=== PATIENT | female | born 1990 | race Two or more races ===

== ENCOUNTER 2016-06-19 06:30 | Inpatient (IN) | payer OTHER ==
[2016-06-19] MEDS ORDERED: CARBOPROST TROMETHAMINE 250 MCG/ML 1 ML AMP IM PRN (06:48)
[2016-06-19] MEDS ORDERED: TERBUTALINE 1 MG/ML VIAL SQ PRN (06:48)
[2016-06-19] MEDS ORDERED: LIDOCAINE 1% (PF) 10 MG/ML (30 ML SDV) SQ PRN (06:48)
[2016-06-19] MEDS ORDERED: METHYLERGONOVINE 0.2 MG/ML 1 ML AMP IM PRN (06:48)
[2016-06-19] MEDS ORDERED: OXYTOCIN 10 UNIT/ML 1 ML VIAL IM PRN (06:48)
[2016-06-19] MEDS ORDERED: OXYTOCIN 30 UNITS/500 ML NS 30 UNIT in SALINE 1 500ML.BAG IV SCH ×2 (07:00→12:00)
[2016-06-19 07:01] LABS: Basophils % (A) 1 %; CH 24.4; Eosinophils # (A) 0.1 k/uL (0-0.7); Eosinophils % (A) 1 %; HCT 32.6 % (34.0-46.0); HDW 3.16; HGB 10.1 gm/dL (11.4-16.0); Hypochromasia Slight; Luc # (Auto) 0.18; Luc % (Auto) 2; Lymphocytes # (A) 2.2 k/uL (1.0-4.8); Lymphocytes % (A) 28 %; MCH 23.9 pg (25.0-35.0); MCHC 31.1 g/dL (31.0-37.0); MCV 76.7 fL (80.0-100.0); Mean Platelet Volume 8.3; Microcytosis Slight; Monocytes # (A) 0.6 k/uL (0-1.0); Monocytes % (A) 7 %; Neutrophils # (A) 4.9 k/uL (1.3-7.7); Neutrophils % (A) 62 %; RBC 4.25 m/uL (3.80-5.40); RDW 15.5 % (11.5-15.5); WBC 7.9 k/uL (3.8-10.6)
[2016-06-19] MEDS: LACTATED RINGERS 1,000 ML IV SCH (07:21)
[2016-06-19 07:51] VITALS: BMI 31.2
[2016-06-19] MEDS ORDERED: BUTORPHANOL 1 MG/ML 1 ML VIAL IV PRN (08:50)
--- NOTE | 2016-06-19 08:50 | P.HPOB ---
History of Present Illness H&P Date: 06/19/16 Chief Complaint: 39-0/7 weeks, elective induction The patient is a 25-year-old 3 para 1011 admitted at 39-0/7 weeks as established by seven-week ultrasound. She is admitted for elective induction of labor the all signs reassuring. Her has been uncomplicated and group B strep status is negative. 3 para 1011 with 1 term vaginal delivery and 1 elective interruption of . Current statistics are listed in history of present illness. EDC of 06/26/2016 was established by seven-week ultrasound. Laboratory workup done traits of blood type of A+ with a negative antibody screen. Rubella status is immune. The remainder of laboratory workup was negative aside from a positive Chlamydia culture which was treated and cured early Glucola was normal while second trimester Glucola was elevated and followed by a normal three-hour glucose tolerance test. Group B strep status is negative. Gynecologic history is unremarkable but does have a history of STD as noted above. That concern was treated and cured during the . Review of Systems Review of systems is confined to history of present illness. Past Medical History Past Medical History: No Reported History History of Any Multi-Drug Resistant Organisms: None Reported Past Surgical History: No Surgical Hx Reported Past Anesthesia/Blood Transfusion Reactions: No Reported Reaction Past Psychological History: Depression Smoking Status: Never smoker Past Alcohol Use History: None Reported Past Drug Use History: None Reported - Past Family History Mother Family Medical History: No Reported History Medications and Allergies Home Medications Medication Instructions Recorded Confirmed Type Sertraline [Zoloft] 100 mg PO HS 06/07/15 06/19/16 History Pnv with Ca,No.72/Iron/FA 1 tab PO ONCE 06/19/16 06/19/16 History [ Plus Tablet] Allergies Allergy/AdvReac Type Severity Reaction Status Date / Time No Known Allergies Allergy Verified 06/07/15 13:54 Exam - Vital Signs Vital signs: Vital Signs Temp Pulse Resp BP Pulse Ox 06/19/16 06:50 96.9 F L 113 H 16 107/69 97 Intake and Output 06/18/16 06/19/16 06/19/16 22:59 06:59 14:59 Other: Weight 82.554 kg In general, this is a well-developed, well-nourished female in no acute distress. Her heart has a regular rhythm and rate without murmur. Her lungs are clear to auscultation bilaterally in all alvarado. Her abdomen is gravid, nondistended, has normal active bowel sounds, is soft, nontender, and without any palpable masses aside from the uterine fundus. Her extremities are without any cyanosis, clubbing, or edema and are nontender to palpation bilaterally. Digital cervical examination on straights her cervix to approximate 3 cm dilated , 50% effaced, with the vertex in presentation at -2-3 station. Artificial rupture of membranes is carried out demonstrate clear fluid. Results Result Diagrams: 06/19/16 06:50 Abnormal Lab Results - Last 24 Hours (Table) 06/19/16 Range/Units 06:50 Hgb 10.1 L (11.4-16.0) gm/dL Hct 32.6 L (34.0-46.0) % MCV 76.7 L (80.0-100.0) fL MCH 23.9 L (25.0-35.0) pg Assessment and Plan (1) Term Status: Acute Plan: The patient has been admitted for elective induction. She understands the minor concerns for increased rate with elective induction and has agreed to proceed. Pitocin augmentation has been started and she will have close maternal and surveillance as well as expectant management practiced. She is a good candidate for either IV or epidural analgesia should she so choose.
[2016-06-19] MEDS ORDERED: ceFAZolin 2 GM in SODIUM CHLORIDE 0.9% 100 ML IVPB ONE (10:46)
[2016-06-19] MEDS ORDERED: CITRIC ACID-SODIUM CITRATE 15 ML CUP PO ONE (10:46)
[2016-06-19] MEDS ORDERED: ePHEDrine 50 MG/ML 1 ML AMP ONE (10:56)
[2016-06-19] MEDS ORDERED: ONDANSETRON 4 MG/2 ML VIAL ONE (10:56)
[2016-06-19] MEDS ORDERED: PROPOFOL 10 MG/ML 20 ML VIAL IV ONE (10:56)
[2016-06-19] MEDS ORDERED: SUCCINYLCHOLINE CHLORIDE 100 MG/5 ML SYR IV ONE (10:56)
[2016-06-19] MEDS ORDERED: fentaNYL (PF) 50 MCG/ML 2 ML AMP ONE (10:56)
[2016-06-19] MEDS ORDERED: PHENYLEPHRINE-0.9% NACL SYG 1 MG/10 ML SYRINGE ONE (10:56)
[2016-06-19] MEDS ORDERED: MORPHINE SULFATE (PF) 0.3 MG/0.3 ML SYR ONE (10:56)
[2016-06-19] MEDS ORDERED: NALBUPHINE 10 MG/ML AMPUL ONE (10:56)
[2016-06-19] MEDS ORDERED: OXYTOCIN 10 UNIT/ML 1 ML VIAL IM ONE (10:56)
[2016-06-19] MEDS ORDERED: SIMETHICONE 80 MG CHEWABLE PO PRN (11:52)
[2016-06-19] MEDS ORDERED: diphenhydrAMINE 50 MG/ML 1 ML VIAL IVP PRN ×2 (11:52)
[2016-06-19] MEDS ORDERED: METOCLOPRAMIDE 5 MG/ML 2 ML VIAL IVP PRN (11:52)
[2016-06-19] MEDS ORDERED: Acetaminophen-Codeine 300-30mg TAB PO PRN (11:52)
[2016-06-19] MEDS ORDERED: ACETAMINOPHEN TAB 325 MG TAB PO PRN (11:52)
[2016-06-19] MEDS ORDERED: diphenhydrAMINE 50 MG CAP PO PRN (11:52)
[2016-06-19] MEDS ORDERED: LANOLIN CREAM 5 GM TUBE TOPICAL PRN (11:52)
[2016-06-19] MEDS ORDERED: diphenhydrAMINE 25 MG CAP PO PRN (11:52)
[2016-06-19] MEDS ORDERED: ZOLPIDEM 5 MG TAB PO PRN (11:52)
--- NOTE | 2016-06-19 12:01 | P.OP ---
Date of Procedure: 06/19/16 Preoperative Diagnosis: #1. 39-0/7 weeks intrauterine #2. Compound presentation in labor Postoperative Diagnosis: Same Procedure(s) Performed: Primary low-transverse section Anesthesia: GETA, spinal (Failed) Surgeon: Darek Real Diesel Mechanic Helper #1: Kristi Beckett Estimated Blood Loss (ml): 500 IV fluids (ml): 800 Urine output (ml): 50 Pathology: other (Placenta) Condition: stable Disposition: floor Operative Findings: Preoperatively, the patient had been admitted for elective induction of labor with a very favorable cervix. She underwent artificial rupture membranes of clear fluid and was making fairly rapid progress in labor when she was found at bedside exam by the nursing staff to have a malpresentation that at the time they could not identify. Dr. Beckett was on the floor and checked the patient and discovered a compound presentation with the hand leading the head. Attempts to reduce this were unsuccessful and in fact caused the hand to come further had of the head. As result, she was taken the operating room where the patient was delivered of a viable 7 lbs. 5 oz. baby girl with Apgars of 9 at 1 minute and 9 at 5 minutes delivered in the compound presentation with the entire arm in the vagina at the time of delivery. This was easily reduced up and through the incision. The uterus, tubes, and ovaries were otherwise entirely normal to inspection. The placenta was delivered manually, intact, and grossly normal with a grossly normal three-vessel cord. Description of Procedure: The patient was prepped and draped in usual fashion after spinal anesthesia was administered by the anesthesiologist. After approximately 10-15 minutes to allow the spinal to set up, it was apparent that the spinal anesthetic was going to be ineffective for analgesia. As result, the patient underwent general endotracheal anesthesia. After establishing the endotracheal tube, a Pfannenstiel incision was made and extended into the abdominal cavity without difficulty. The bladder peritoneum was well below the site of the intended surgery and was left intact. A 2 cm incision was made in the transverse plane and a hemostat utilized to open the lower uterine segment sharply. The incision was extended in both directions bluntly. The head was encountered within the incision and lifted up and through with the right arm noted to be fully extended towards the vagina. This was delivered up and through as well. The was delivered onto the surgical field where the nose and mouth were thoroughly suctioned. The cord was doubly clamped, cut, and the passed for resuscitative measures with weight and Apgars as noted above. A segment of cord was doubly clamped, cut, and set aside should cord gases become necessary. The placenta was delivered spontaneously and intact as noted above. The uterus was exteriorized and the interior cavity of the uterus swept of any remaining placental or membranous fragments. The margins of the incision were grasped with Lamb clamps and the incision closed in 2 layers. The first layer was a running locking stitch of 0 chromic catgut followed by a running imbricating stitch of 0 chromic catgut. Any small points of bleeding were made hemostatic with the Bovie. The posterior cul-de- sac was suctioned with a guard and the uterine and ovarian findings are as noted above. The uterus was replaced within the abdominal cavity and the gutters were swept of any remaining blood, fluid, or clot. The incision was reexamined and any further small points of bleeding were made hemostatic with the Bovie. Once hemostasis was established, the parietal peritoneum was loosely reapproximated and layer of muscles examined and found to be hemostatic. The fascia was closed with 2 running stitches of 0 Vicryl proceeding from the lateral margins to the midpoint. The subcutaneous tissues were irrigated, made hemostatic with the Bovie, and reapproximated with a running stitch of 30 plain catgut. The skin was reapproximated with a running subcuticular stitch of 4-0 Vicryl from margin to margin. This was followed by half-inch Steri-Strips placed with Mastisol. Estimated blood loss for the case was approximate 500 mL. There are no complications. All sponge, instrument, and needle counts were correct. Both mother and infant are resting comfortably in recovery.
[2016-06-19] MEDS: Acetaminophen-Codeine 300-30mg TAB PO PRN (13:41)
[2016-06-19] MEDS: SENNOSIDES-DOCUSATE SODIUM 1 EACH TAB PO SCH (20:34)
[2016-06-19] MEDS: KETOROLAC 30 MG/ML 1 ML VIAL IVP PRN (20:34)
[2016-06-20] MEDS: KETOROLAC 30 MG/ML 1 ML VIAL IVP PRN ×2 (03:10→09:27)
[2016-06-20] MEDS: LACTATED RINGERS 1,000 ML IV SCH ×4 (05:32→19:58)
--- NOTE | 2016-06-20 08:32 | P.PN ---
Progress Note - Text Date: 06/20/2016 Time: 07:08 The patient is status post section Vital signs stable VAS: 0-10 Patient has no complaints of pain. The patient incurred some minimal itching yesterday, this itching is now subsiding. Pain meds to be managed by service.
[2016-06-20 08:47] LABS: Basophils % (A) 0 %; CH 24.4; CHCM 31.1; Eosinophils # (A) 0.1 k/uL (0-0.7); Eosinophils % (A) 1 %; HCT 29.9 % (34.0-46.0); Hypochromasia Moderate; Luc # (Auto) 0.17; Luc % (Auto) 2; Lymphocytes # (A) 1.7 k/uL (1.0-4.8); Lymphocytes % (A) 21 %; MCH 23.7 pg (25.0-35.0); MCHC 30.2 g/dL (31.0-37.0); MCV 78.6 fL (80.0-100.0); Mean Platelet Volume 7.9; Microcytosis Slight; Monocytes # (A) 0.7 k/uL (0-1.0); Monocytes % (A) 8 %; Neutrophils # (A) 5.6 k/uL (1.3-7.7); Neutrophils % (A) 68 %; RDW 15.6 % (11.5-15.5); WBC 8.2 k/uL (3.8-10.6); WBC (Perox) 8.58
--- NOTE | 2016-06-20 08:57 | P.PNOBGPC ---
Subjective - Subjective Interval history: The patient reports that she has been unable to void on her own since catheter removal yesterday evening. Patient reports: Reports appetite normal, Reports pain well controlled, Reports ambulating normally : doing well Objective - Vital Signs Latest vital signs: Vital Signs Temp Pulse Resp BP Pulse Ox 06/20/16 08:00 98.5 F 71 18 97/58 06/20/16 03:44 98.2 F 73 16 104/63 99 06/20/16 00:00 98.1 F 66 16 92/51 97 06/19/16 20:00 97.8 F 69 18 100/54 97 06/19/16 16:22 97.8 F 68 20 115/66 98 06/19/16 16:20 68 06/19/16 14:03 57 L 14 102/66 06/19/16 13:33 106 H 14 106/68 06/19/16 13:03 58 L 14 97/57 06/19/16 12:48 69 16 101/59 06/19/16 12:30 77 14 105/61 06/19/16 12:18 86 14 106/56 99 06/19/16 12:03 97.6 F 89 16 119/51 Intake and Output 06/19/16 06/20/16 06/20/16 22:59 06:59 14:59 Intake Total 1200 Output Total 200 2000 Balance -200 -800 Intake: Oral 1200 Output: Urine 200 2000 Uretheral (Garrett) 1000 Other: # Bowel Movements 0 - Exam Lungs: bilateral: normal Chest: Normal S1, Normal S2 Extremities: Present: normal Abdomen: Present: normal appearance, soft. Absent: distention, tenderness Incision: Present: normal, dry, intact Uterus: Present: normal, firm (The uterine fundus as tonic and nontender well below the umbilicus.) Assessment and Plan (1) Term Current Visit: Yes Status: Acute Code(s): Z34.80 - ENCOUNTER FOR SUPRVSN OF NORMAL , UNSP TRIMESTER SNOMED Code(s): 89489515 (2) S/P section Narrative/Plan: Continue routine postoperative care. The patient has not yet voided on her own. Some strategies were suggested to her to include the trying to urinate while in the shower. Should she be able to void without difficulty, discharges possible tomorrow morning pending no further complications or concerns. Current Visit: Yes Status: Acute Code(s): Z98.891 - HISTORY OF UTERINE SCAR FROM PREVIOUS SURGERY SNOMED Code(s): 014509409
[2016-06-20] MEDS: SENNOSIDES-DOCUSATE SODIUM 1 EACH TAB PO SCH ×2 (09:28→19:29)
[2016-06-20 15:35] VITALS: RESP 16
[2016-06-20] MEDS: IBUPROFEN 600 MG TAB PO PRN ×2 (15:52→20:48)
[2016-06-20] MEDS: Acetaminophen-Codeine 300-30mg TAB PO PRN ×2 (17:47→23:55)
[2016-06-21] MEDS: IBUPROFEN 600 MG TAB PO PRN ×2 (02:57→10:01)
[2016-06-21] MEDS: Acetaminophen-Codeine 300-30mg TAB PO PRN ×2 (06:05→13:11)
[2016-06-21 08:19] VITALS: BP 108/57; PULSE 72; TEMP 98.1
--- NOTE | 2016-06-21 12:15 | P.DS ---
Providers Date of admission: 06/19/16 06:31 Expected date of discharge: 06/21/16 Attending physician: Darek Real Primary care physician: Stated None - Discharge Diagnosis(es) (1) Term Current Visit: Yes Status: Acute (2) S/P section Current Visit: Yes Status: Acute Hospital Course: The patient is a 25-year-old 3 para 1011 admitted at 39-0/7 weeks by good dating parameters. She is admitted for elective induction with all signs reassuring. Her had been uncomplicated and group B strep status was negative. On labor and delivery, she had Pitocin started and underwent artificial rupture of membranes for clear fluid. She was progressing well in labor when she was discovered to have compound presentation that could not be reduced with the right hand preceding the head. This became increasingly more prominent the requiring delivery. She was taken to the operating room where she was delivered of a viable 7 lbs. 5 oz. baby girl with Apgars of 9 at 1 minute and 9 at 5 minutes. Her postoperative course was unremarkable with vital signs remaining stable and her temperature was afebrile throughout. She was deemed stable for discharge by postoperative day #2 and was discharged home to follow-up in the office in 2 weeks' time for an incision check and 6 weeks time routinely. Discharge instructions included calling for any significantly increased bleeding or foul-smelling lochia, significantly increased fever or abdominal pain, perineal complaints, breast complaints, incisional complaints, or anything else that concerned her. She was additionally instructed to have nothing in the vagina for at least 6 weeks time to include intercourse and to abstain from any heavy lifting over the same period of time. She was last instructed to do no driving until off of all pain medications or 2 weeks' time, whichever came first. She understood her instructions and agrees to follow up as noted above. Discharge medications included a prescription for Macdoel 5/325 mg, 1-2 by mouth every 6 hours when necessary pain, #30 dispensed with no refills. She was additionally to alternate this with [id number] analgesics as needed. Maternal blood type is A+ and rubella status is immune. Discharge hemoglobin and hematocrit were 9.0 and 29.9 respectively. This prompted recommendation of using iron sulfate 325 mg daily for the next month. Procedures: #1. Pitocin induction #2. Artificial rupture of membranes #3. Primary low- transverse section Patient Condition at Discharge: Good Plan - Discharge Summary New Discharge Prescriptions: HYDROcodone/APAP 5-325MG [Macdoel 5-325] 1 - 2 tab PO Q6HR PRN #30 tab PRN Reason: Pain Discharge Medication List Sertraline [Zoloft] 100 mg PO HS 06/07/15 [History] Pnv with Ca,No.72/Iron/FA [ Plus Tablet] 1 tab PO ONCE 06/19/16 [History ] HYDROcodone/APAP 5-325MG [Macdoel 5-325] 1 - 2 tab PO Q6HR PRN #30 tab 06/21/16 [ Rx] Follow up Appointment(s)/Referral(s): Darek Real MD [STAFF PHYSICIAN] - 2 Weeks Patient Instructions/Handouts: (DC) Discharge Disposition: HOME SELF-CARE
[2016-06-21] MEDS: SENNOSIDES-DOCUSATE SODIUM 1 EACH TAB PO SCH (14:04)
== END 2016-06-21 14:06 | disposition home or self-care (01) | DRG 766 ==
LOC: 4FBP 06:31
PROVIDERS: ADMIT Obstetrics & Gynecology; ATTEND Obstetrics & Gynecology
PROC: 10907ZC Drainage of Amniotic Fluid, Therapeutic from Products of Conception, Via Natural or Artificial Opening (ICD-10-PCS; principal; 2016-06-19 10:56)
PROC: 10D00Z1 Extraction of Products of Conception, Low, Open Approach (ICD-10-PCS; principal; 2016-06-19 10:56)
DX: O32.6XX0 Maternal care for compound presentation, not applicable or unspecified (principal); F32.9 Major depressive disorder, single episode, unspecified; Z37.0 Single live birth; O99.344 Other mental disorders complicating childbirth; Z3A.39 39 weeks gestation of pregnancy
CPT/HCPCS: 85025; 86850; 86900; 86901; 88307